=== PATIENT | male | born 1960 | race Two or more races ===

== ENCOUNTER 2017-11-26 07:50 | Outpatient (CLI) | payer OTHER | END 2017-11-26 08:03 | disposition home or self-care (01) | LOC: MRI 07:50 | DX: C61 Malignant neoplasm of prostate (principal) | CPT/HCPCS: 72196; A9579 ==

== ENCOUNTER 2017-11-30 08:07 | Outpatient (CLI) | payer OTHER | END 2017-11-30 08:12 | disposition home or self-care (01) | LOC: NUCLEAR 08:07 | DX: C61 Malignant neoplasm of prostate (principal) | CPT/HCPCS: 78306; A9503 ==

== ENCOUNTER 2018-09-29 10:17 | Outpatient (CLI) | payer OTHER | END 2018-09-29 10:21 | disposition home or self-care (01) | LOC: NUCLEAR 10:17 | DX: I73.9 Peripheral vascular disease, unspecified (principal); I87.2 Venous insufficiency (chronic) (peripheral); I70.213 Atherosclerosis of native arteries of extremities with intermittent claudication, bilateral legs; I83.009 Varicose veins of unspecified lower extremity with ulcer of unspecified site ==

== ENCOUNTER → 2018-09-30 09:38 | Outpatient (CLI) | payer OTHER | END | disposition home or self-care (01) | LOC: NUCLEAR 09:00 | DX: I87.2 Venous insufficiency (chronic) (peripheral) (principal); I73.9 Peripheral vascular disease, unspecified ==